=== PATIENT | female | born 2005 | race African-American/Black ===

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

== ENCOUNTER → 2025-07-16 | Emergency (ER) | payer MEDICAID ==
[~2025-07-16] VITALS: Ht 172.7 cm; Wt 47.5 kg
[~2025-07-16] MED LIST: AUG875T PO; HYDRX10T PO; TRAZ-227 PO; VORT1TAB PO
[2025-07-17 00:18] VITALS: BP 117/73; PULSE 93; RESP 16; TEMP 98.5; O2SAT 100
[2025-07-17 13:00] LABS: Urine Amorphous Crystal FEW /hpf (None Seen); Urine Protein, UAD TRACE (Negative)
== END | disposition left against medical advice (07) ==
LOC: ER 21:25
DX: R56.9 Unspecified convulsions (principal); Z53.21 Procedure and treatment not carried out due to patient leaving prior to being seen by health care provider
CPT/HCPCS: 81001